=== PATIENT | male | born 1985 | race African-American/Black ===

== ENCOUNTER → 2020-08-18 | Outpatient (CLI) | payer BC ==
[2014-05-26 22:20] VITALS: BP 126/76
[~2020-08-18] MED LIST: CETI10TA74 PO; FLUT9.9S NS; OXYC1TAB15 PO
== END ==
LOC: LAB 10:00
PROVIDERS: ATTEND Surgery
DX: Z01.812 Encounter for preprocedural laboratory examination (principal); K42.9 Umbilical hernia without obstruction or gangrene; Z20.828 Contact with and (suspected) exposure to other viral communicable diseases
CPT/HCPCS: U0003

== ENCOUNTER 2020-08-22 06:15 | Day surgery (SDC) | payer BC ==
[~2020-08-22] VITALS: Ht 165.1 cm; Wt 72.5 kg
[~2020-08-22 06:15] MED LIST changes: -OXYC1TAB15 PO
[2020-08-22] MEDS ORDERED: PROPOFOL 10 MG/ML (20ML) VIAL. IV ONE (06:20)
[2020-08-22] MEDS ORDERED: DEXAMETHASONE SOD PHOS 4 MG/ML VIAL ONE (06:20)
[2020-08-22] MEDS ORDERED: LIDOCAINE 2% PF 5 ML VIAL. ONE (06:20)
[2020-08-22] MEDS ORDERED: ONDANSETRON PF 4 MG/2 ML VIAL. ONE (06:21)
[2020-08-22] MEDS ORDERED: ROCURONIUM 50 MG/5 ML VIAL. ONE (06:27)
[2020-08-22] MEDS ORDERED: HYDROmorphone 2 MG/ML VIAL IV PRN (06:45)
[2020-08-22] MEDS ORDERED: ONDANSETRON PF 4 MG/2 ML VIAL. IV PRN (06:45)
[2020-08-22] MEDS ORDERED: MORPHINE SULFATE 2 MG/ML VIAL. IV PRN (06:45)
[2020-08-22] MEDS ORDERED: IV RINGERS,LACTATED 1000ML 1,000 ML IV SCH (06:45)
[2020-08-22] MEDS ORDERED: PROCHLORPERAZINE 10 MG/2 ML VIAL. IV PRN (06:45)
[2020-08-22] MEDS ORDERED: fentaNYL PF VIAL 100 MCG/2 ML VIAL IV PRN ×2 (06:45)
[2020-08-22] MEDS ORDERED: BUPIVACAINE-EPI 0.5% 30 ML VIAL KIT. ONE (07:04)
[2020-08-22] MEDS ORDERED: fentaNYL PF VIAL 100 MCG/2 ML VIAL ONE ×3 (07:16→09:26)
[2020-08-22] MEDS ORDERED: SEVOFLURANE 61 TO 120 MINUTES. IH ONE (08:12)
[2020-08-22] MEDS ORDERED: KETOROLAC 30 MG/ML VIAL. ONE (08:19)
--- NOTE | 2020-08-22 08:43 | PDOC4 ---
Operative Note Operative Note Operative Note: Preoperative Diagnosis: Umbilical hernia Postoperative Diagnosis: Same Procedure: Umbilical hernia repair with mesh Surgeon: Jimbo Backhoe Operator: Angella QUIJANO Anesthesia: General EBL: 10 mL Specimen: None Drains: None Complications: None Indication: The patient is a 35-year-old male who is referred with umbilical hernia. He requests operative repair. The risks of surgery were discussed which include bleeding, infection, visceral injury, pain, recurrence, potential need for additional surgery procedure. He understands and would like to proceed. Description: The patient was taken to the operating room and placed supine in the operating table. General anesthesia was performed. The abdomen is prepped with ChloraPrep and draped with sterile towels, sheets, and an Ioban. A curved infraumbilical incision was made in the skin with a scalpel. Cautery dissection was carried down to the fascia. The umbilical tissue was elevated off the fascia exposing a small hernia defect. A preperitoneal plane was developed circumferentially around the defect. The defect was quite small however we were able to place a small Ventralex ST mesh in the preperitoneal space. The mesh was sutured in position with 0 Prolene placed in a horizontal mattress fashion. The fascial edges were closed over the mesh with 0 Prolene. The umbilicus was secured back to the mesh with 0 Vicryl. The subcutaneous tissues were approximated with 3-0 Vicryl and skin closed with 4-0 Monocryl. The incision was infiltrated with half percent Marcaine with epinephrine. Steri-Strips and a sterile dressing were applied. The patient tolerated the procedure well and was sent to the recovery room in stable condition. At the end of the case all counts were correct. DORA MCDONALD MD Aug 22, 2020 08:43
--- NOTE | 2020-08-22 08:45 | DISCH ---
DISCHARGE INSTRUCTIONS Condition on Discharge Condition on Discharge: Stable Activity After Discharge Activity Instructions for Disc: Other, see below (no lifting over 20 lbs, s trenuous activity X 4 weeks.) Diet after Discharge Diet after Discharge: Regular Wound Incision Care Wound/Incision Care: Other, see below (keep dressing clean and dry X 72 hours, may then remove and shower) Follow-Up Follow up with: Dr Mcdonald in 2 weeks in office, call for appointment [phone] DORA MCDONALD MD Aug 22, 2020 08:45
[2020-08-22] MEDS ORDERED: OXYC1TAB15 PO (09:36)
[2020-08-22] MEDS ORDERED: oxyCODONE/APAP 5/325 1 TAB TABLET PO ONE (10:00)
[2020-08-22 10:05] VITALS: BP 128/67
== END 2020-08-22 10:55 | disposition home or self-care (01) ==
LOC: SURG 06:15
PROVIDERS: ATTEND Surgery
DX: K42.9 Umbilical hernia without obstruction or gangrene (principal); Z79.899 Other long term (current) drug therapy; Z98.890 Other specified postprocedural states; Z72.89 Other problems related to lifestyle
CPT/HCPCS: 49585; C1781; J0690; J1100; J1885; J2405; J2704; J3010